=== PATIENT | male | born 1980 | race Caucasian/White ===

== ENCOUNTER 2021-10-03 15:34 | Emergency (ER) | payer SELFPAY ==
[~2021-10-03] VITALS: Ht 167.6 cm; Wt 79.4 kg
== END 2021-10-03 16:58 | disposition home or self-care (01) ==
LOC: ER 15:38
DX: R21 Rash and other nonspecific skin eruption (principal); F17.210 Nicotine dependence, cigarettes, uncomplicated
CPT/HCPCS: 99283